=== PATIENT | female | born 1955 | race Caucasian/White ===

== ENCOUNTER → 2019-12-02 11:10 | Outpatient (BNVA) | payer BC, SELFPAY | PROVIDERS: Family Provider Nurse Practitioner Family; Visit Provider Nurse Practitioner Family | DX: Z79.899 Other long term (current) drug therapy (principal); I10 Essential (primary) hypertension | CPT/HCPCS: 80048 ==

== ENCOUNTER 2024-06-16 16:26 | Emergency (ER) | payer MEDICARE, OTHER, SELFPAY ==
[2024-06-16 16:30] VITALS: BP 125/74; PULSE 77; RESP 16; TEMP 36.7; O2SAT 98; BMI 48.6
--- NOTE | 2024-06-16 16:34 | XRR_ITS ---
PROCEDURE INFORMATION: Exam: XR Left Elbow Exam date and time: 06/16/2024 4:41 PM Age: 69 years old Clinical indication: Injury or trauma; Fall; Blunt trauma (contusions or hematomas); Elbow; Left; Additional info: Elbow dislocation S/P fall-, did the one view and was told to hold off, until further notice TECHNIQUE: Imaging protocol: Radiologic exam of the left elbow. Views: 1 or 2 views. COMPARISON: No relevant prior studies available. FINDINGS: Bones/joints: Limited due to single frontal view. Lateral dislocation of the radius and ulna onto the humerus. There does appear to be an olecranon fracture which can be better assessed on multiple views. Soft tissues: Overlying soft tissue deformity. XR/XR elbow LT 2V [id number] IMPRESSION: As above.
--- NOTE | 2024-06-16 16:37 | ED_ITS ---
Documented by User: Tony Jennings DO 06/16/24 17:50 HPI - Extremity Problem General: Chief complaint: Extremity Injury, Upper Stated complaint: fall - left arm deformity Time Seen by Provider: 06/16/24 16:28 History of Present Illness: 69-year-old female presents via EMS afte r sustaining a fall walking outside in the [place] and falling on her left arm. She has an obvious deformity present with dislocated elbow. She denies hitting her head or any other injuries from the fall. She is alert and oriented and able to converse. Related Data Previous Rx's Medication Instructions Recorded lisinopril 10 mg tablet 10 mg PO DAILY #30 tabs 06/22/20 hydrochlorothiazide 25 mg tablet 25 mg PO DAILY #90 tabs 07/06/20 hydrocodone 5 mg-acetaminophen 325 1 tab PO Q6H PRN pain #14 tabs 06/16/24 mg tablet Allergies Allergy/AdvReac Type Severity Reaction Status Date / Time No Known Allergies Allergy Verified 12/02/19 10:47 [facility] ED PFSH: Medical History (Updated 06/16/24 @ 19:29 by Christo Lovell MD) HTN (hypertension) Physical Exam Const: GENERAL APPEARANCE: cooperative, in distress and anxious HENMT: COMMON NORMALS: normocephalic and atraumatic HEAD & SCALP: normocephalic and atraumatic Eye: COMMON NORMALS: EOMs intact bilaterally and conjunctivae normal CONJUNCTIVA: Yes conjunctivae normal Chest: CHEST: Yes Symmetrical chest wall rise Resp: COMMON NORMALS: normal respiratory effort and clear to auscultation bilaterally EFFORT & INSPECTION: Yes able to speak in complete sentences AUSCULTATION: clear to auscultation bilaterally GI: COMMON NORMALS: Soft to palpation and non-tender PALPATION: Yes Soft to palpation Extremity: LEFT UPPER EXTREMITY: Yes elbow joint (with obvious deformity, forearm supinated at the elbow ) Course Vital Signs: Vital signs: Vital Signs Temperature 98.1 F 06/16/24 16:30 Pulse Rate 94 06/16/24 17:27 Respiratory Rate 20 H 06/16/24 16:46 Blood Pressure 98/56 06/16/24 17:30 Pulse Oximetry 99 06/16/24 17:30 Oxygen Delivery Me thod Room Air 06/16/24 17:30 MDM - Extremity (Nontraumatic) Medical Decision Making 69-year-old female presents via EMS after sustaining a fall walking outside in the [place] and falling on her left arm. Received 200 fentanyl and 4 Zofran from EMS en route. X-rays obtained of the left elbow showing dislocation without fracture. Administered morphine and compazine for pain and nausea. Reduction of elbow was attempted with conscious sedation using Versed and fentanyl. Joint alignment improved on XR however not entirely reduced. Pt handed off to Dr. Lovell at 17:45 for further management. Lab Data Radiology Impressions Elbow X-Ray 06/16/24 17:09 IMPRESSION: As above. Elbow CT 06/16/24 17:33 IMPRESSION: As above. Discharge Plan Discharge Patient Disposition: Home Clinical Impression: Closed dislocation of left elbow Qualifiers: Encounter type: initial encounter Qualified Code(s): S53.105A - Unspecified dislocation of left ulnohumeral joint, initial encounter Condition: Stable Prescriptions: New hydrocodone-acetaminophen 5-325 mg tablet 1 tab PO Q6H PRN (Reason: pain) Qty: 14 0RF No Action lisinopril 10 mg tablet 10 mg PO DAILY Qty: 30 0RF Rx Instructions: 340b plan please, patient needs an appt before another refill. hydrochlorothiazide 25 mg tablet 25 mg PO DAILY Qty: 90 0RF Rx Instructions: 340b plan please, needs appt Discharge Orders: Discharge ED (Routine); Ordered 06/16/24 Ordered By: Christo Lovell Referrals: Nick Rosenthal DO [Referring] - 4-7 days Discharge Diet: Advance as tolerated Discharge Activity: Resume usual activity Patient Instructions: Elbow Dislocation (ED), Opioid Safety Coding Level of Care Code ED Supervisor [employer] for [employer] Documented by User: Christo Lovell MD 06/16/24 19:37 HPI - Extremity Problem General: Chief complaint: Extremity Injury, Upper Stated complaint: fall - left arm deformity Time Seen by Provider: 06/16/24 16:28 Related Data Previous Rx's Medication Instructions Recorded lisinopril 10 mg tablet 10 mg PO DAILY #30 tabs 06/22/20 hydrochlorothiazide 25 mg tablet 25 mg PO DAILY #90 tabs 07/06/20 hydrocodone 5 mg-acetaminophen 325 1 tab PO Q6H PRN pain #14 tabs 06/16/ mg tablet Allergies Allergy/AdvReac Type Severity Reaction Status Date / Time No Known Allergies Allergy Verified 12/02/19 10:47 [facility] ED PFSH: Medical History (Updated 06/16/24 @ 19:29 by Christo Lovell MD) HTN (hypertension) Procedures Orthopedic Joint Reduction Joint #1: Time Out Performed: Yes Side: left Joint Reduction Location: elbow Analgesia: procedural sedation Technique used: traction/counter-traction Post-reduction neuro exam: intact Post-reduction vascular: intact Post Reduction X-Ray Obtained: Yes Post Reduction X-Ray Results: reduced Splint Applied: Yes Patient Tolerated Procedure: well Procedural Sedation Indication: fracture/dislocation reduction ASA Class: II Time of Last PO Intake: 12:00 Preparation: pvc monitor applied and pulse oximeter IV Propofol dose (mg): 100 Course Vital Signs: Vital signs: Vital Signs Temperature 98.1 F 06/16/24 16:30 Pulse Rate 94 06/16/24 17:27 Respiratory Rate 20 H 06/16/24 16:46 Blood Pressure 98/56 06/16/24 17:30 Pulse Oximetry 99 06/16/24 17:30 Oxygen Delivery Me thod Room Air 06/16/24 17:30 MDM - Extremity (Nontraumatic) Medical Decision Making 69-year-old female presents via EMS after sustaining a fall walking outside in the [place] and falling on her left arm. Received 200 fentanyl and 4 Zofran from EMS en route. X-rays obtained of the left elbow showing dislocation without fracture. Administered morphine and compazine for pain and nausea. Reduction of elbow was attempted with conscious sedation using Versed and fentanyl. Joint alignment improved on XR however not entirely reduced. Pt handed off to Dr. Lovell at 17:45 for further management. Did reduce patient's elbow patient's splint CT showed appropriate reduction and it was unclear on the x-ray. Patient wants to be followed at [facility] did talk to orthopedist Dr. Park reviewed films he is to follow him up outpatient. She is to return if worsening she understands resplinted Lab Data Radiology Impressions Elbow X-Ray 06/16/24 17:09 IMPRESSION: As above. Elbow CT 06/16/24 17:33 IMPRESSION: As above. All radiology interpretation(s) finalized by discharge Discharge Plan Discharge Patient Disposition: Home Clinical Impression: Closed dislocation of left elbow Qualifiers: Encounter type: initial encounter Qualified Code(s): S53.105A - Unspecified dislocation of left ulnohumeral joint, initial encounter Condition: Stable Prescriptions: New hydrocodone-acetaminophen 5-325 mg tablet 1 tab PO Q6H PRN (Reason: pain) Qty: 14 0RF No Action lisinopril 10 mg tablet 10 mg PO DAILY Qty: 30 0RF Rx Instructions: 340b plan please, patient needs an appt before another refill. hydrochlorothiazide 25 mg tablet 25 mg PO DAILY Qty: 90 0RF Rx Instructions: 340b plan please, needs appt Discharge Orders: Discharge ED (Routine); Ordered 06/16/24 Ordered By: Christo Lovell Referrals: Nick Rosenthal DO [Referring] - 4-7 days Discharge Diet: Advance as tolerated Discharge Activity: Resume usual activity Patient Instructions: Elbow Dislocation (ED), Opioid Safety Coding Level of Care Code ED Supervisor [employer] for Aysha Varela
[2024-06-16 16:46] VITALS: RESP 20
[2024-06-16] MEDS: morphine 4 mg/mL SDV 1 mL IVP (16:46)
[2024-06-16] MEDS: prochlorperazine 10 mg/2 mL Inj IVP (16:46)
--- NOTE | 2024-06-16 17:09 | XRR_ITS ---
PROCEDURE INFORMATION: Exam: XR Left Elbow Exam date and time: 06/16/2024 5:12 PM Age: 69 years old Clinical indication: Injury or trauma; Other: Post reduction TECHNIQUE: Imaging protocol: Radiologic exam of the left elbow. Views: 1 or 2 views. COMPARISON: CR XR elbow LT 2V [id number] 06/16/2024 4:41 PM FINDINGS: Bones/joints: Improved alignment of the elbow joint. At this time there does not appear to be a displaced fracture although there may be some irregularity of the lateral condyle but this is obscured due to overlying cast material and positioning. If there is continued clinical concern for subtle underlying fracture then follow up with a CT of the elbow without contrast. Soft tissues: Overlying soft tissue swelling. XR/XR elbow LT 2V [id number] IMPRESSION: As above.
[2024-06-16 17:27] VITALS: BP 122/104; PULSE 94; O2SAT 97
[2024-06-16 17:30] VITALS: BP 98/56; O2SAT 99
--- NOTE | 2024-06-16 17:32 | PC.NURSE ---
WITNESSED WASTE OF PROPOFOL WITH MAGDALENA HARRISON, 100 MG.
--- NOTE | 2024-06-16 17:33 | CTR_ITS ---
PROCEDURE INFORMATION: Exam: CT Left Upper Extremity Without Contrast, Elbow Exam date and time: 06/16/2024 6:24 PM Age: 69 years old Clinical indication: Injury or trauma; Fall; Blunt trauma (contusions or hematomas); Elbow; Left; Injury date: 06/16/2024; Additional info: Elbow dislocation TECHNIQUE: Imaging protocol: Computed tomography of the left upper extremity without contrast. Exam focused on the elbow. Radiation optimization: All CT scans at this facility use at least one of these dose optimization techniques: automated exposure control; mA and/or kV adjustment per patient size (includes targeted exams where dose is matched to clinical indication); or iterative reconstruction. COMPARISON: CR (UP EXM, ) 06/16/2024 5:12 PM RADIATION DOSE METRICS: Total DLP (mGy-cm): 1196.36 FINDINGS: Bones/joints: The elbow joint is demonstrating improved alignment. No definitive large acute displaced fracture can be seen. Small elbow joint effusion. Well corticated ossific body within the joint space is likely from a remote injury. Additional small fragments may be related to chip fractures. Soft tissues: Overlying soft tissue swelling. CT/CT elbow LT wo con* [id number] IMPRESSION: As above.
[2024-06-16] MEDS: propofol 10 mg/mL SDV 20 mL 100 MG IVP (17:34)
--- NOTE | 2024-06-16 17:37 | PC.NURSE ---
WASTED PROPOFOL 100MG WITH AGUILAR INGRAM RN. WASTED VERSED 2MG WITH AGUILAR INGRAM DUE TO PUNCTURE BUT MD CHANGED ORDER. RETURNED VERSED 4MG AND RETURNED FENTANYL 100MG. DR. HARO PUSHED PROPOFOL 100MG FOR CONSCIOUS SEDATION.
--- NOTE | 2024-06-16 17:39 | PC.NURSE ---
PER DR. HARO, CANCEL VERSED AND FENTANYL. MD CHANGED TO PREFERRED ORDER OF PROPOFOL.
[2024-06-16] MEDS: HYDROcodone-acetaminophen 5-325 mg Tablet 1 TAB PO (19:24)
--- NOTE | 2024-06-18 15:50 | DCPLANNER ---
Message sent to Ortho for follow up
== END 2024-06-16 19:41 | disposition home or self-care (01) ==
PROVIDERS: Emergency Provider Emergency Medicine
DX: S53.105A Unspecified dislocation of left ulnohumeral joint, initial encounter (principal); I10 Essential (primary) hypertension; W19.XXXA Unspecified fall, initial encounter
CPT/HCPCS: 24600; 73070; 73200; 96374; 96375; 99152; 99285; J0780; J2270; J2704